=== PATIENT | female | born 1990 | race Caucasian/White ===

== ENCOUNTER 2016-05-03 18:44 | Emergency (ER) | payer OTHER ==
--- NOTE | 2016-05-03 22:03 | ED NURSING NOTES ---
Clinical Report - Nurses [facility] [place] [address] 05/03/2016 18:47 Patient: GURWINDER RIVAS TRIAGE Triage time 19:55. Acuity: LEVEL 4. Chief Complaint: FEVER, COUGH and BODY ACHES and (right hip pain). 20:02. Alert. SEPSIS SCREEN: Sepsis Screen. Negative (no infection suspected/documented). --20:02 Noman Medina R.N. 19:55 05/03/16. BP: 111/66. HR: 99. RR: 17. O2 saturation: 100% on room air. Temp: 98.3 F (oral). Pain level now: 09/03. --20:02 Noman Medina R.N. Height/Length: 108 inches Per Patient. --19:59 Noman Medina R.N.. <<STRICKEN ENTRY-- Weight: 544.3 kg stated. BMI: 72.3. --END STRIKE>> Correction --19:59 Noman Medina R.N.. Weight: 58 kg stated. BMI: 7.7. --19:59 Noman Medina R.N. Medications Anxiety med - patient can't remember name . --20:00 Noman Medina R.N. Allergies Amoxicillin. --20:00 Noman Medina R.N. Medication/allergy information source: the patient. --20:02 Noman Medina R.N. History Arrived by private vehicle. Historian: patient. Accompanied by friend. Primary physician (). This started yesterday. 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 PAST MEDICAL HX: Immunizations: up-to-date. Last normal menstrual period was 3 weeks ago. SOCIAL HX: Smoker- current status unknown (Vapes 6mg daily). Occasional alcohol use. No drug use. No recent travel. No infectious disease exposure. No known contact with a sick individual. ABUSE ASSESSMENT: No report of abuse. FALL RISK ASSESSMENT: Fall risk assessment completed. No fall risk identified. NUTRITIONAL RISK ASSESSMENT: The nutritional risk assessment revealed no deficiencies. FUNCTIONAL ASSESSMENT: Functional assessment: no impairments noted. LEARNING NEEDS ASSESSMENT: The learning needs assessment revealed no barriers. SKIN INTEGRITY ASSESSMENT: Skin integrity risk assessment completed. No skin integrity risk identified. --20:02 Noman Medina R.N. PROBLEMS: Anxiety Reaction. --20:01 Noman Medina R.N. ADDITIONAL SURGERIES: no known surgeries. Interventions ID band on patient. To treatment room. --20:02 Noman Medina R.N. PHYSICAL ASSESSMENT ( GCS 15). GENERAL / NEURO / PSYCH: Alert. Oriented X 4. HEENT: Pupils equal, round and reactive to light. Mucous membranes are pink. RESPIRATORY: Respirations not labored. CVS: Capillary refill less than 2 seconds. GI / : The patient has had nausea. SKIN: Skin is warm and dry. --21:04 Gigi Little R.N. NURSING PROGRESS NOTES The plan of care for this patient has been created. Pulse oximeter applied. Patient gowned. Head of bed elevated. Reassurance given. Two patient identifiers checked. Call light placed in reach. Side rails up x 1. Bed placed in lowest position. Patient ready for evaluation- chart flagged. --21:05 Gigi Little R.N. <<STRICKEN ENTRY-- 21:11 05/03/16. BP: 164/97. O2 saturation: 95%. --21:12 Gigi Little R.N. --END STRIKE>> Correction. --21:12 Gigi Little R.N. 21:12 05/03/16. BP: 120/75. O2 saturation: 100%. --21:13 Gigi Little R.N. ED physician notified. Notified (FLU A +). --21:37 Willard Espinoza, ER Nib Finisher 22:02 05/03/2016 Tamiflu PO 75 mg given. Allergies verified and confirmed 5 rights. --22:02 Gigi Little R.N. DISPOSITION / DISCHARGE Departure time: 7. Condition at departure: improved. The goals identified in the patient's plan of care were met. No learning barriers present. Discharge instructions provided and reviewed with the patient. Reviewed medication(s) side effects information. Prescription(s) given to the patient. Patient verbalized understanding. Written instructions provided in [place]. The patient was discharged by the physician. She was discharged home. ( Pt ambulated on discharge, verbalized understanding of discharge instructions and follow up care. medication admin education performed). FALL RISK ASSESSMENT: Fall risk assessment completed. No fall risk identified. --22:10 Gigi Little R.N. 22:09 05/03/16. BP: 111/60. HR: 107. RR: 20. O2 saturation: 98%. Temp: 99.1 F. Pain level now 0/10. --22:10 Gigi Little R.N. Locked/Released at 05/04/2016 2:58 by Gigi Little R.N.
--- NOTE | 2016-05-03 22:03 | ED CLINICAL REPORT ---
Clinical Report - Physicians/Mid Levels [facility] [address] [place] [address] 05/03/2016 18:47 Patient: GURWINDER RIVAS Time Seen: 21:23. Arrived- By private vehicle. Historian- patient. HISTORY OF PRESENT ILLNESS Chief Complaint: COUGH, FEVER, CHILLS and "FLU". This started yesterday and is still present. The illness is described as moderate. The patient has had a mild dry cough. No sputum production, difficulty breathing, chest discomfort or pain or sore throat. No hoarseness, sinus pressure, sinus drainage or ear pain. The patient has had nasal congestion, fever, chills, muscle aches and a nasal discharge. Additional history - The patient has had contact with a sick individual. Similar symptoms previously: None. Recent medical care: Not recently seen/assessed. REVIEW OF SYSTEMS No headache, eye discomfort, nausea, vomiting or diarrhea. No abdominal pain, hay fever, pedal edema, calf pain or difficulty with urination. No skin rash, enlarged lymph nodes or joint pain. Denies current . All systems otherwise negative, except as recorded above. PAST HISTORY Problems: Anxiety Reaction. Additional Surgeries: no known surgeries. Medications: Anxiety med - patient can't remember name . Allergies: Amoxicillin. SOCIAL HISTORY Smoker- current status unknown. Occasional alcohol use. No drug use. ADDITIONAL NOTES The nursing notes have been reviewed. PHYSICAL EXAM Vital Signs: 05/03/2016 19:55 BP: 111/66. HR: 99. RR: 17. O2 saturation: 100%. Temp: 98.3 F. Pain level now: 5/10. Have been reviewed. Appearance: Alert. No acute distress. Eyes: Pupils equal, round and reactive to light. Eyes normal inspection. ENT: Nose normal. Pharynx normal. Neck: Normal inspection. Neck supple. CVS: Normal heart rate and rhythm. Heart sounds normal. Pulses normal. Respiratory: No respiratory distress. Breath sounds normal. Abdomen: Soft and nontender. Back: Normal inspection. No CVA tenderness. Skin: Skin warm and dry. Normal skin color. No rash. Normal skin turgor. Extremities: Extremities exhibit normal ROM. No lower extremity edema. Neuro: Oriented X 3. No motor deficit. No sensory deficit. LABS, X-RAYS, AND EKG Chest X-ray: No acute disease. Normal lung markings present. Normal heart size. Mediastinum normal. Great vessels normal. Soft tissues normal. No infiltrate. No fracture. No bony lesion present. Views: PA and lateral. Technique: good. The X-rays were independently viewed by me, interpreted by the radiologist and contemporaneously by me and discussed with the radiologist. Prior films were not available for comparison. Laboratory Tests: Rapid Influenza Screen: (CARLOS: 05/03/2016 21:07) ( [id number] 05/03/2016 21:37) Final results SPECIMEN DESCRIPTION: SPECIAL EVENTS COORDINATOR Test Result Flag Units (Reference) RAPID INFLUENZA SCREEN CALLED TO: MONTY COLINDRES TECH -- DATE: 05/03/16 INFLUENZA A: POSITIVE SCREEN FOR INFLUENZA A INFLUENZA B: NEGATIVE SCREEN FOR INFLUENZA B . Pulse Oximetry: 05/03/2016 19:55 O2 saturation: 100%. (FIO2 - room air). Interpretation: normal. PROGRESS AND PROCEDURES Course of Care: PT was given a dose of Tamiflu. She declined Tylenol and ibuprofen, stating she had them at home. Patient counseled in person regarding the patient's stable condition, test results, diagnosis and need for follow-up. Concerns were addressed. Old medical records reviewed. Disposition: Discharged. Condition: stable. CLINICAL IMPRESSION Influenza type A with upper respiratory infection, rhinitis, pharyngitis and gastroenteritis. INSTRUCTIONS Do not work for three days (Mon, , Thu). Drink plenty of fluids. Warnings: GENERAL WARNINGS: Return or contact your physician immediately if your condition worsens or changes unexpectedly, if not improving as expected, or if other problems arise. Your Current Medications: CONTINUE TAKING THE FOLLOWING MEDICATIONS: Anxiety med - patient can't remember name *. Prescription Medications: Tamiflu 75 mg: take 1 capsule orally for 5 days. No refill. Substitution is permissible. Follow-up: Follow up with your doctor in two weeks if not better. Understanding of the discharge instructions verbalized by patient. (Electronically signed by Virginia Santiago MD 05/08/2016 20:59)
--- NOTE | 2016-05-03 22:03 | ED ORDER SUMMARY ---
..... Patient: GURWINDER RIVAS OrderSheet [facility] VisitID: [id number] [place] [address] 25y, F Registration Date/Time: 05/03/2016 ORDER SHEET Weight: 58.0 kg (stated) Allergies: Amoxicillin GENERAL ORDERS: Rapid Influenza Screen (Nasal Pharyngeal) (CHIEF CONCIERGE) Urgent (21:10 05/03/2016 CASEYeydeo R.N. per protocol) (Ack 21:16 TBergley) (22:05 TBergley) Chest 2V Urgent (21:24 05/03/2016 Vanda DUKE) (Ack 21:26 TBergley) (21:37 RFay) MEDICATION ORDERS: - (Tamiflu 75 mg PO x 1) (21:42 05/03/2016 Vanda DUKE) (22:02 DBeyer R.N.) IV FLUIDS: ORDER SHEET NOTES: [Electronically signed by Gigi Little R.N. (02:58 05/04/2016)] [Electronically signed by Virginia Santiago MD (20:59 05/08/2016)] [Electronically locked/signed by Gigi Little R.N. (02:58 05/04/2016)]
--- NOTE | 2016-05-03 22:03 | ED ORDER SUMMARY ---
..... Patient: GURWINDER RIVAS OrderSheet [facility] VisitID: [id number] [place] [address] 25y, F Registration Date/Time: 05/03/2016 ORDER SHEET Weight: 58.0 kg (stated) Allergies: Amoxicillin GENERAL ORDERS: Rapid Influenza Screen (Nasal Pharyngeal) (SUPERCHARGE REPAIR SUPERVISOR) Urgent (21:10 05/03/2016 CASEYeydeo R.N. per protocol) (Ack 21:16 TBergley) (22:05 TBergley) Chest 2V Urgent (21:24 05/03/2016 Vanda DUKE) (Ack 21:26 TBergley) (21:37 RFay) MEDICATION ORDERS: - (Tamiflu 75 mg PO x 1) (21:42 05/03/2016 Vanda DUKE) (22:02 DBeyer R.N.) IV FLUIDS: ORDER SHEET NOTES: [Electronically signed by Gigi Little R.N. (02:58 05/04/2016)] [Electronically signed by Virginia Santiago MD (20:59 05/08/2016)] [Electronically locked/signed by Gigi Little R.N. (02:58 05/04/2016)]
--- NOTE | 2016-05-03 22:03 | ED NURSING NOTES ---
Clinical Report - Nurses [facility] [place] [address] 05/03/2016 18:47 Patient: GURWINDER RIVAS TRIAGE Triage time 19:55. Acuity: LEVEL 4. Chief Complaint: FEVER, COUGH and BODY ACHES and (right hip pain). 20:02. Alert. SEPSIS SCREEN: Sepsis Screen. Negative (no infection suspected/documented). --20:02 Noman Medina R.N. 19:55 05/03/16. BP: 111/66. HR: 99. RR: 17. O2 saturation: 100% on room air. Temp: 98.3 F (oral). Pain level now: 09/03. --20:02 Noman Medina R.N. Height/Length: 108 inches Per Patient. --19:59 Noman Medina R.N.. <<STRICKEN ENTRY-- Weight: 544.3 kg stated. BMI: 72.3. --END STRIKE>> Correction --19:59 Noman Medina R.N.. Weight: 58 kg stated. BMI: 7.7. --19:59 Noman Medina R.N. Medications Anxiety med - patient can't remember name . --20:00 Noman Medina R.N. Allergies Amoxicillin. --20:00 Noman Medina R.N. Medication/allergy information source: the patient. --20:02 Noman Medina R.N. History Arrived by private vehicle. Historian: patient. Accompanied by friend. Primary physician (). This started yesterday. 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 PAST MEDICAL HX: Immunizations: up-to-date. Last normal menstrual period was 3 weeks ago. SOCIAL HX: Smoker- current status unknown (Vapes 6mg daily). Occasional alcohol use. No drug use. No recent travel. No infectious disease exposure. No known contact with a sick individual. ABUSE ASSESSMENT: No report of abuse. FALL RISK ASSESSMENT: Fall risk assessment completed. No fall risk identified. NUTRITIONAL RISK ASSESSMENT: The nutritional risk assessment revealed no deficiencies. FUNCTIONAL ASSESSMENT: Functional assessment: no impairments noted. LEARNING NEEDS ASSESSMENT: The learning needs assessment revealed no barriers. SKIN INTEGRITY ASSESSMENT: Skin integrity risk assessment completed. No skin integrity risk identified. --20:02 Noman Medina R.N. PROBLEMS: Anxiety Reaction. --20:01 Noman Medina R.N. ADDITIONAL SURGERIES: no known surgeries. Interventions ID band on patient. To treatment room. --20:02 Noman Medina R.N. PHYSICAL ASSESSMENT ( GCS 15). GENERAL / NEURO / PSYCH: Alert. Oriented X 4. HEENT: Pupils equal, round and reactive to light. Mucous membranes are pink. RESPIRATORY: Respirations not labored. CVS: Capillary refill less than 2 seconds. GI / : The patient has had nausea. SKIN: Skin is warm and dry. --21:04 Gigi Little R.N. NURSING PROGRESS NOTES The plan of care for this patient has been created. Pulse oximeter applied. Patient gowned. Head of bed elevated. Reassurance given. Two patient identifiers checked. Call light placed in reach. Side rails up x 1. Bed placed in lowest position. Patient ready for evaluation- chart flagged. --21:05 Gigi Little R.N. <<STRICKEN ENTRY-- 21:11 05/03/16. BP: 164/97. O2 saturation: 95%. --21:12 Gigi Little R.N. --END STRIKE>> Correction. --21:12 Gigi Little R.N. 21:12 05/03/16. BP: 120/75. O2 saturation: 100%. --21:13 Gigi Little R.N. ED physician notified. Notified (FLU A +). --21:37 Willard Espinoza, ER Substation Operator 22:02 05/03/2016 Tamiflu PO 75 mg given. Allergies verified and confirmed 5 rights. --22:02 Gigi Little R.N. DISPOSITION / DISCHARGE Departure time: 7. Condition at departure: improved. The goals identified in the patient's plan of care were met. No learning barriers present. Discharge instructions provided and reviewed with the patient. Reviewed medication(s) side effects information. Prescription(s) given to the patient. Patient verbalized understanding. Written instructions provided in [place]. The patient was discharged by the physician. She was discharged home. ( Pt ambulated on discharge, verbalized understanding of discharge instructions and follow up care. medication admin education performed). FALL RISK ASSESSMENT: Fall risk assessment completed. No fall risk identified. --22:10 Gigi Little R.N. 22:09 05/03/16. BP: 111/60. HR: 107. RR: 20. O2 saturation: 98%. Temp: 99.1 F. Pain level now 0/10. --22:10 Gigi Little R.N. Locked/Released at 05/04/2016 2:58 by Gigi Little R.N.
--- NOTE | 2016-05-04 00:03 | DIAGNOSTIC IMAGING REPORT ---
PROCEDURE: XR CHEST 2 VIEW INDICATION: COUGH, initial encounter TECHNIQUE: PA and lateral view. COMPARISON: None. FINDINGS: Mildly increased right mid lung markings suspicious for developing pneumonia. Cardiovascular structures are normal. Bony thorax is unremarkable. IMPRESSION: 1. Increased right mid lung markings suspicious for pneumonia.
--- NOTE | 2016-05-08 21:00 | ED MAR SUMMARY ---
..... Medication Administration Record [facility] [address] [place] [address] Patient: GURWINDER RIVAS Visit ID: [id number] 25y, F Weight: 58.0 kg Height/Length: 108 in BMI: 7.7 ALLERGIES: Amoxicillin Given 22:02 05/03/2016 Gigi Little R.N. Medication Administered: TAMIFLU [PO], Dose: 75 mg PO. Medication Ordered: - (Tamiflu 75 mg PO x 1).
--- NOTE | 2016-05-08 21:00 | ED MED RECONCILIATION SUMMARY ---
Patient: GURWINDER RIVAS Medication Reconciliation Report [facility] VisitID: [id number] [address] [place] [address] 25y, F Registration Date/Time: 05/03/2016 Weight: 58.0 kg Height/Length: 108 in. BMI: 7.7 ALLERGIES: Amoxicillin The patient's Home Medications are listed below: CONTINUE TAKING THE FOLLOWING MEDICATIONS: Anxiety med - patient can't remember name The source(s) of the original Home Medication information: patient The following Medications were given to the patient in the Emergency Department: Tamiflu [PO] PO 75 mg, administered: 05/03/2016 10:02:00 PM The following Medications were prescribed to the patient: Tamiflu 75 mg: take 1 capsule orally for 5 days. No refill. Substitution is permissible. -- Virginia Santiago MD
--- NOTE | 2016-05-08 21:00 | ED MAR SUMMARY ---
..... Medication Administration Record [facility] [address] [place] [address] Patient: GURWINDER RIVAS Visit ID: [id number] 25y, F Weight: 58.0 kg Height/Length: 108 in BMI: 7.7 ALLERGIES: Amoxicillin Given 22:02 05/03/2016 Gigi Little R.N. Medication Administered: TAMIFLU [PO], Dose: 75 mg PO. Medication Ordered: - (Tamiflu 75 mg PO x 1).
--- NOTE | 2016-05-08 21:00 | ED MED RECONCILIATION SUMMARY ---
Patient: GURWINDER RIVAS Medication Reconciliation Report [facility] VisitID: [id number] [address] [place] [address] 25y, F Registration Date/Time: 05/03/2016 Weight: 58.0 kg Height/Length: 108 in. BMI: 7.7 ALLERGIES: Amoxicillin The patient's Home Medications are listed below: CONTINUE TAKING THE FOLLOWING MEDICATIONS: Anxiety med - patient can't remember name The source(s) of the original Home Medication information: patient The following Medications were given to the patient in the Emergency Department: Tamiflu [PO] PO 75 mg, administered: 05/03/2016 10:02:00 PM The following Medications were prescribed to the patient: Tamiflu 75 mg: take 1 capsule orally for 5 days. No refill. Substitution is permissible. -- Virginia Santiago MD
--- NOTE | 2016-05-08 21:00 | ED DISCHARGE INSTRUCTIONS ---
Patient: GURWINDER RIVAS General Instructions [facility] VisitID: [id number] [place] [address] 25y, F Registration Date/Time: 05/03/2016 Influenza type A with upper respiratory infection, rhinitis, pharyngitis and gastroenteritis. INSTRUCTIONS Do not work for three days (Mon, Tues, Wed). Drink plenty of fluids. Warnings: GENERAL WARNINGS: Return or contact your physician immediately if your condition worsens or changes unexpectedly, if not improving as expected, or if other problems arise. Your Current Medications: CONTINUE TAKING THE FOLLOWING MEDICATIONS: Anxiety med - patient can't remember name *. Prescription Medications: Tamiflu 75 mg: take 1 capsule orally for 5 days. No refill. Substitution is permissible. Follow-up: Follow up with your doctor in two weeks if not better. Understanding of the discharge instructions verbalized by patient. ADDITIONAL INFORMATION Influenza (Adult) Influenza, also called the flu, is a viral illness that affects the air passages of the lungs. It differs from the common cold. It is highly contagious. It may be spread through the air by coughing and sneezing or by direct contact (touching the sick person and then touching your own eyes, nose or mouth). Illness starts 1-3 days after exposure and lasts for 1-2 weeks. Antibiotics are usually not needed unless a complication appears (ear or sinus infection or pneumonia). Symptoms may be mild or severe and can include extreme tiredness (wanting to stay in bed all day), chills, fevers, muscle aching, soreness with eye movement, headache, and a dry, hacking cough. Home Care: Avoid exposure to cigarette smoke (yours or others). Tylenol or ibuprofen (Advil) will help fever, muscle aching, and headache. To avoid risk of liver injury, aspirin should not be used in children and teenagers under 18 with this illness. Nausea and loss of appetite are common. A light diet is recommended. Avoid dehydration by drinking 6-8 glasses of fluids per day (water, sport drinks like Gatorade, soft drinks without caffeine, juices, tea, soup, etc.). Extra fluids will also help loosen secretions in the nose and lungs. Gvug-txc-qvnxroc cold medicines will not shorten the duration of the illness but may be helpful for the following symptoms: cough (Robitussin DM); sore throat (Chloraseptic lozenges or spray); nasal and sinus congestion (Actifed or Sudafed). [NOTE: Do not use decongestants if you have high blood pressure.] Stay home until your fever has been gone for at least 24 hours (without the use of fever-reducing medications such as ibuprofen). Follow Up with your doctor or as directed by our staff if you are not improving over the next week. Note: If you are age 65 or older, or if you have chronic asthma or COPD, we recommend a pneumococcal vaccinationevery five years. All adults shouldreceive a yearly influenza vaccination every . Ask your doctor about this. Get Prompt Medical Attention if any of the following occur: Cough with lots of colored sputum (mucus) or blood in your sputum Chest pain, shortness of breath, wheezing, or difficulty breathing Severe headache, face, neck or ear pain New rash Fever of 100.4F (38C) oral or higher, not better with fever medication Confusion, behavior change or seizure Severe weakness or dizziness You have been given the following additional information: Influenza (Adult) Do not work for three days (Mon, , Thu). (Electronically signed by Virginia Santiago MD 05/08/2016 20:59)
== END 2016-05-03 22:07 | disposition home or self-care (01) ==
LOC: ED SRH 18:44
DX: J10.1 Influenza due to other identified influenza virus with other respiratory manifestations (principal); J10.2 Influenza due to other identified influenza virus with gastrointestinal manifestations; Z88.1 Allergy status to other antibiotic agents
CPT/HCPCS: 91400